=== PATIENT | male | born 1935 | race Caucasian/White ===

== ENCOUNTER → 2023-08-23 14:26 | Outpatient (REF) | payer MEDICARE, BC, SELFPAY ==
[2023-08-23 15:25] LABS: % Basophils 0.4 % (0-2); % Eosinophils 0.9 % (0-6); % Immature Granulocytes 0.6 % (0-0.5); % Lymphocytes 31.7 % (20.5-51.1); % Monocytes 9.9 % (1.7-9.3); % Neutrophils 56.5 % (42.2-75.2); Absolute Eosinophils 0.1 10^3/uL (0-0.7); Absolute Lymphocytes 1.7 10^3/uL (1.2-3.4); Absolute Monocytes 0.5 10^3/uL (0.1-0.6); Absolute Neutrophils 3.1 10^3/uL (1.4-6.5); Hematocrit 35.8 % (39.0-52.0); Hemoglobin 12.2 g/dL (13.0-18.0); Mean Corp Hgb Conc. 34.1 g/dL (33.0-37.0); Mean Corpuscular Hgb 30.7 pg (27.0-31.0); Mean Corpuscular Volume 89.9 fL (80.0-94.0); Mean Platelet Volume 10.2 fL (7.4-10.4); Nucleated Red Blood Cells % 0 % (-); Platelet Count 209 10^3/uL (130-400); Red Blood Cell Count 3.98 10^6/uL (4.70-6.10); Red Cell Dist. Width 12.5 % (11.5-14.5); White Blood Cell Count 5.5 10^3/uL (4.8-10.8)
== END ==
LOC: REG 14:26
PROVIDERS: ATTENDING PHYSICIAN Family Medicine
DX: D72.819 Decreased white blood cell count, unspecified (principal)
CPT/HCPCS: 36415; 85025

== ENCOUNTER 2023-08-30 06:38 | Inpatient (IN) | payer MEDICARE, BC, SELFPAY ==
--- NOTE | 2023-07-27 12:17 | CM ---
Patient is scheduled for an elective L THR on 08/30/23. Spoke with patient prior to surgery via telephone. Patient had a right and left TKRs at in 2017. Reintroduced role of Orthopedic Navigator. Patient reports that he lives alone in a one story
home. There are no steps to enter. He currently functions independently. He has a rolling walker, cane and commode. He has never had VN services. PCP is Dr. Dorie Trejo.
Discussed orthopedic program and post surgical plans. Reviewed anticipated length of stay and that goal is for him to return home at discharge. Also reviewed outpatient PT. Patient is in agreement with tentative plan and will go directly to
outpatient PT at [facility]. He states that his brothers will stay with him initially.
Patient will complete online education.
Plan: Orthopedic Navigator will remain available to assist with the care of patient and will reassess discharge needs after surgery.
[2023-08-10 09:04] VITALS: BMI 30.8
[2023-08-10 10:17] LABS: Hematocrit 35.6 % (39.0-52.0); Hemoglobin 12.3 g/dL (13.0-18.0); Mean Corp Hgb Conc. 34.6 g/dL (33.0-37.0); Mean Corpuscular Hgb 30.8 pg (27.0-31.0); Mean Platelet Volume 10.2 fL (7.4-10.4); Platelet Count 147 10^3/uL (130-400); Red Cell Dist. Width 12.6 % (11.5-14.5); White Blood Cell Count 2.6 10^3/uL (4.8-10.8)
[2023-08-10 10:39] LABS: ALT (SGPT) 20 U/L (0-50); AST (SGOT) 23 U/L (17-59); Alkaline Phosphatase 103 U/L (38-126); Blood Urea Nitrogen 24 mg/dl (9-20); Calcium 8.4 mg/dl (8.4-10.2); Carbon Dioxide 26 mmol/L (22-30); Chloride 104 mmol/L (98-107); Estimated Creatinine Clearance 46 ml/min; Glucose 96 mg/dl (70-99); Sodium 134 mmol/L (135-145); Total Bilirubin 1.6 mg/dl (0.2-1.3); Total Protein 6.7 g/dl (6.3-8.2); eGFR > 60.00
[2023-08-10 11:52] LABS: Glycohemoglobin (HgbA1c) 5.3 % (4.0-5.6)
[2023-08-10 15:57] VITALS: BMI 30.8
[2023-08-30] VITALS (10 sets, daily range): BP systolic 105–184; BP diastolic 33–76; PULSE 77; O2SAT 97; BMI 30.8
[2023-08-30] MEDS: TYLENOL 650 MG PO ×3 (11:14→19:42)
[2023-08-30] MEDS: NORMOSOL-R 1000 IV ×2 (11:34→16:10)
[2023-08-30] MEDS: ROXICODONE 5 MG PO (16:04)
--- NOTE | 2023-08-30 16:38 | PTCARENOTE ---
Pt arrived to [facility] from PACU s/p L THR. Pt L hip aquacel C/D/I, NV intact, IVF infusing. Pt states no pain at this time. Pt oriented to call hobbs and room, bed locked and in lowest position, call hobbs within reach.
[2023-08-30] MEDS: TYLENOL PO (16:47)
[2023-08-30] MEDS: ELIQUIS 2.5 MG PO (19:41)
[2023-08-30] MEDS: COLACE 100 MG PO (19:41)
[2023-08-30] MEDS: ANCEF 5 IV (19:41)
[2023-08-30] MEDS: DECADRON 4 MG PO (19:41)
[2023-08-30] MEDS: SENOKOT 17.1999999999999993 MG PO (19:41)
[2023-08-30] MEDS: BACTROBAN 2% OINTMENT 1 APPLIC NASAL (19:50)
[2023-08-30] MEDS: LIPITOR 10 MG PO (20:55)
[2023-08-30] MEDS: PROTONIX 40 MG PO (20:55)
[2023-08-30] MEDS: NEURONTIN 300 MG PO (20:55)
[2023-08-31] MEDS: TYLENOL PO ×2 (00:09→03:20)
[2023-08-31] MEDS: ANCEF 5 IV (02:51)
[2023-08-31 03:15] VITALS: BP 130/60
[2023-08-31 06:00] VITALS: BMI 30.7
[2023-08-31 07:44] VITALS: BP 121/48
--- NOTE | 2023-08-31 08:13 | W.PN.ORTHO ---
Today's Communication / Plan
-
d/c
Assessment
.
Distal Motor Intact: Yes
Dressing:
Clean, dry and intact.
Plan
.
Surgery / Date: Eliana Malcolm 08/31/23
DVT Prophylaxis: Other (Eliquis)
Activity:
Out of bed.
PT/OT
Discharge Plan: Home w/ Outpatient PT
Subjective
.
.:
Patient resting comfortably.
Vital Signs and Labs
.
Vital Signs and Labs:
Lab Results
08/10/23 08:57
08/10/23 08:56
Temp Pulse Resp BP Pulse Ox
97.7 F 69 18 121/48 96
08/31/23 07:44 08/31/23 07:44 08/31/23 07:44 08/31/23 07:44 08/31/23 07:44
Non-invasive Hgb result: 10.7
Physical Exam
-
HEENT: No pallor, cyanosis, or jaundice. Throat clear.
NECK: Supple. No JVD.
RESPIRATORY: Lungs clear to auscultation.
CVS: S1, S2 normal. RRR.� No murmur, rub or gallop.
ABDOMEN: Soft, non-tender. No distension. BS+/normal.
EXTREMITIES: strength equal, no calf pain with palpation
SHINGLE INSPECTOR: AOx3. No focal deficits. communications senior associate grossly intact
[2023-08-31] MEDS: DECADRON 4 MG PO (08:21)
[2023-08-31] MEDS: TYLENOL 650 MG PO (08:21)
[2023-08-31] MEDS: ELIQUIS 2.5 MG PO (08:21)
[2023-08-31] MEDS: BACTROBAN 2% OINTMENT 1 APPLIC NASAL (08:21)
[2023-08-31] MEDS: COLACE 100 MG PO (08:21)
[2023-08-31] MEDS: SENOKOT 17.1999999999999993 MG PO (08:21)
[2023-08-31] MEDS: TOPROL XL 25 MG PO (08:21)
--- NOTE | 2023-08-31 08:23 | W.DS.TRANS ---
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
-
Discharge Instructions:
Sleep Apnea Risk Intermediate
Discharge Diagnosis/Procedures L SUNDAY Malcolm 08/30/23
Diet As tolerated
Activity With Walker
Driving Restrictions No driving
Bathing Restrictions OK to Shower
Other Services PT
Instructions:
Stand-Alone Forms: Total Hip/Knee Replacement D/C
Changes to Home Medications: Yes
Discharge Medications:
DC Medications w/original date entered in StatusPage
lovastatin 20 mg tablet 20 mg PO DAILY High cholesterol 07/17/16
aspirin 81 mg tablet,delayed release 81 mg PO DAILY Blood clot prevention/tx 11/24/16
metoprolol succinate 25 mg tablet,extended release 24 hr 25 mg PO DAILY Heart disease/condition 06/16/22
Vitamin B12 1 dose IM MONTHLY Supplement 07/10/22
irbesartan 150 mg tablet 150 mg PO DAILY #30 tabs 07/17/22
mupirocin 2 % topical ointment 1 applic topical BID infection prevention #1 tube 08/10/23
acetaminophen 325 mg capsule (Tylenol) 650 mg PO QID #2 caps 08/31/23
apixaban 5 mg tablet (Eliquis) 2.5 mg PO BID blood clot prevention/Afibb #60 tabs 08/31/23
dexamethasone 4 mg tablet 4 mg PO BID inflammation #6 tabs 08/31/23
docusate sodium 100 mg capsule (Colace) 100 mg PO BID stool softner #1 cap 08/31/23
famotidine 20 mg tablet 20 mg PO HS GI prophylaxis #30 tabs 08/31/23
gabapentin 300 mg capsule 300 mg PO HS sleep/pain #10 caps 08/31/23
magnesium hydroxide 400 mg/5 mL oral suspension (Milk of Magnesia) 30 ml PO HS PRN Constipation #1 mL 08/31/23
sennosides 8.6 mg tablet (Senokot) 17.2 mg PO BID laxative #2 tabs 08/31/23
tramadol 50 mg tablet 50 - 100 mg PO Q6H PRN 1 tab moderate, 2 tabs if pain severe #30 tabs 08/31/23
Home Medication Changes
apixaban 5 mg tablet (Eliquis) 2.5 mg PO BID blood clot prevention/Afibb #60 tabs 08/31/23
dexamethasone 4 mg tablet 4 mg PO BID inflammation #6 tabs 08/31/23
famotidine 20 mg tablet 20 mg PO HS GI prophylaxis #30 tabs 08/31/23
gabapentin 300 mg capsule 300 mg PO HS sleep/pain #10 caps 08/31/23
tramadol 50 mg tablet 50 - 100 mg PO Q6H PRN 1 tab moderate, 2 tabs if pain severe #30 tabs 08/31/23
Pending Results: No
--- NOTE | 2023-08-31 08:44 | CM ---
Addendum entered by Yoly Santo 08/31/23 10:23:
Patient did well in therapy. His brother, Ronnell, and [id number], Bindu, were present for therapy. Discharge plans were reviewed. They have no concerns at this time.
Original Note:
Reviewed chart and held rounds with PT, OT and nursing. Patient admitted as planned for elective L THR. Met with patient at bedside. Confirmed information previously obtained for assessment. Also discussed discharge plans. The plan is for patient to
return home at discharge. His brothers will be staying with him initially. Patient will go directly to outpatient PT and will come to . He has an appointment scheduled for Wednesday, 08/31.
Patient has a rolling walker, cane, commode, lift chair, firm cushions and hip kit.
He will use [facility] pharmacy for discharge prescriptions.
[2023-08-31 10:22] VITALS: BP 122/56; PULSE 89; O2SAT 98
[2023-08-31 11:10] VITALS: BP 121/60; PULSE 85; O2SAT 94
== END 2023-08-31 12:34 | disposition home or self-care (01) | DRG 470 ==
LOC: 2 SOUTH 06:38
PROVIDERS: ADMITTING PHYSICIAN Specialist; FAMILY PHYSICIAN Family Medicine; OTHER PHYSICIAN Internal Medicine Cardiovascular Disease
PROC: 0SRB0JZ Replacement of Left Hip Joint with Synthetic Substitute, Open Approach (ICD-10-PCS; 2023-08-30)
DX: M16.12 Unilateral primary osteoarthritis, left hip (principal); I10 Essential (primary) hypertension; I48.0 Paroxysmal atrial fibrillation; E78.5 Hyperlipidemia, unspecified; E53.8 Deficiency of other specified B group vitamins; Z79.01 Long term (current) use of anticoagulants; Z95.2 Presence of prosthetic heart valve; Z79.82 Long term (current) use of aspirin
CPT/HCPCS: 36415; 73502; 80053; 83036; 85027; 87070; 97110; 97116; 97162; 97166; 97535; C1713; C1776

== ENCOUNTER 2023-09-01 06:58 | Outpatient (RCR) | payer MEDICARE, BC, SELFPAY | END 2023-09-01 23:59 | disposition home or self-care (01) | LOC: RPT 06:58 | PROVIDERS: ATTENDING PHYSICIAN Specialist; FAMILY PHYSICIAN Family Medicine | DX: Z47.1 Aftercare following joint replacement surgery (principal); Z96.642 Presence of left artificial hip joint; Z73.6 Limitation of activities due to disability | CPT/HCPCS: 97110; 97162 ==

== ENCOUNTER 2023-10-05 13:42 | Outpatient (RCR) | payer MEDICARE, BC, SELFPAY | END 2023-10-05 23:59 | disposition home or self-care (01) | LOC: RPT 13:42 | PROVIDERS: ATTENDING PHYSICIAN Specialist; FAMILY PHYSICIAN Family Medicine | DX: Z47.1 Aftercare following joint replacement surgery (principal); Z96.642 Presence of left artificial hip joint; Z73.6 Limitation of activities due to disability | CPT/HCPCS: 97110; 97116; 97140 ==

== ENCOUNTER 2023-10-07 13:10 | Outpatient (RCR) | payer MEDICARE, BC, SELFPAY | END 2023-10-07 23:59 | disposition home or self-care (01) | LOC: RPT 13:10 | PROVIDERS: ATTENDING PHYSICIAN Specialist; FAMILY PHYSICIAN Family Medicine | DX: Z47.1 Aftercare following joint replacement surgery (principal); Z96.642 Presence of left artificial hip joint; Z73.6 Limitation of activities due to disability | CPT/HCPCS: 97110 ==

== ENCOUNTER → 2024-08-08 07:19 | Outpatient (REF) | payer MEDICARE, BC, SELFPAY ==
[2024-08-08 08:30] LABS: % Basophils 0.5 % (0-2); % Eosinophils 1.8 % (0-6); % Immature Granulocytes 0.3 % (0-0.5); % Lymphocytes 35.6 % (20.5-51.1); % Monocytes 12.4 % (1.7-9.3); % Neutrophils 49.4 % (42.2-75.2); Absolute Eosinophils 0.1 10^3/uL (0-0.7); Absolute Lymphocytes 1.4 10^3/uL (1.2-3.4); Absolute Monocytes 0.5 10^3/uL (0.1-0.6); Absolute Neutrophils 1.9 10^3/uL (1.4-6.5); Hematocrit 38.5 % (39.0-52.0); Hemoglobin 13.3 g/dL (13.0-18.0); Mean Corp Hgb Conc. 34.5 g/dL (33.0-37.0); Mean Corpuscular Hgb 31.2 pg (27.0-31.0); Mean Corpuscular Volume 90.4 fL (80.0-94.0); Mean Platelet Volume 10.3 fL (7.4-10.4); Nucleated Red Blood Cells % 0 % (-); Platelet Count 168 10^3/uL (130-400); Red Blood Cell Count 4.26 10^6/uL (4.70-6.10); Red Cell Dist. Width 12.9 % (11.5-14.5); White Blood Cell Count 3.9 10^3/uL (4.8-10.8)
[2024-08-08 09:17] LABS: Glycohemoglobin (HgbA1c) 5.2 % (4.0-5.6)
[2024-08-08 09:29] LABS: ALT (SGPT) 23 U/L (0-50); AST (SGOT) 22 U/L (17-59); Alkaline Phosphatase 91 U/L (38-126); Blood Urea Nitrogen 27 mg/dl (9-20); Carbon Dioxide 23 mmol/L (22-30); Chloride 106 mmol/L (98-107); Glucose 97 mg/dl (70-99); HDL Cholesterol 77 mg/dl; LDL Cholesterol, Calculated 111 mg/dl; Potassium 4.7 mmol/L (3.5-5.1); Sodium 137 mmol/L (135-145); Total Bilirubin 1.4 mg/dl (0.2-1.3); Total Cholesterol 206 mg/dl (50-199); Total Protein 6.7 g/dl (6.3-8.2); Triglyceride 93 mg/dl (10-149); Very Low Density Lipoprotein 18 mg/dl (0-30); eGFR > 60.00
== END ==
LOC: REG 07:19
PROVIDERS: ATTENDING PHYSICIAN Family Medicine
DX: E78.00 Pure hypercholesterolemia, unspecified (principal); E53.8 Deficiency of other specified B group vitamins; I10 Essential (primary) hypertension; R00.2 Palpitations; D50.0 Iron deficiency anemia secondary to blood loss (chronic); M16.12 Unilateral primary osteoarthritis, left hip; Z79.899 Other long term (current) drug therapy
CPT/HCPCS: 36415; 80053; 80061; 83036; 85025

== ENCOUNTER → 2025-03-01 14:49 | Outpatient (REF) | payer MEDICARE, BC, SELFPAY | LOC: RCS 14:49 | PROVIDERS: ATTENDING PHYSICIAN Internal Medicine Cardiovascular Disease; FAMILY PHYSICIAN Family Medicine | DX: Z95.2 Presence of prosthetic heart valve (principal); I10 Essential (primary) hypertension; I48.0 Paroxysmal atrial fibrillation; E78.5 Hyperlipidemia, unspecified | CPT/HCPCS: 93306 ==